=== PATIENT | female | born 1960 | race Caucasian/White ===

== ENCOUNTER 2017-10-16 19:11 | Emergency (ER) | payer OTHER ==
--- NOTE | 2017-10-16 19:42 | PDOC ---
History of Present Illness <Madai Ratliff - Last Filed: 10/16/17 22:26> - History of Present Illness Initial Comments: 10/16/17 19:43 56 yo F with h/o HTN, HLD, and NIDDM who presents with lightheadedness. Per pt. and pt. son and at bedside she experienced sudden onset of lightheadedness while upstairs in bedroom laying down. Denies vertiginous symptom, but reports nausea without vomiting. Denies LOC, confusion, convulsions , urinary incontinence, tongue biting, convulsions, slurred speech, facial droop. States that she had just finished eating dinner and went upstairs. notes that SBP was 140's and gave her Losartan 100 ( 1730) with improvement in BP. Family state that they had to carry pt. to car d/t weakness Patient denies periods of lightheadedness, but endorses fatigue, increased thirst, and increased urination over past week. Denies F/C, CP, palpitations, cough, SOB, abdominal pain, diarrhea, constipation, urinary complaints, sensory changes, VILLAGOMEZ, or vision change. Family reports new change in diet with 15 pound wt. loss over past 3 months. Denies h/o TIA/CVA, CAD/[place], stent placement, or abnormal stress testing. Recent LUE U/S with no evidence of DVT. <Jesse Treadwell - Last Filed: 10/16/17 22:35> - General Stated Complaint: DIZZINESS Time Seen by Provider: 10/16/17 19:41 Past History <Madai Ratliff - Last Filed: 10/16/17 22:26> - Past Medical History Anemia: No Asthma: No Cancer: No Cardiac Disorders: No CVA: No COPD: No CHF: No Dementia: No Diabetes: Yes GI Disorders: No Disorders: No HTN: No Hypercholesterolemia: Yes Liver Disease: No Seizures: No Thyroid Disease: No - Suicide/Smoking/Psychosocial Hx Smoking History: Never smoked Hx Alcohol Use: No Drug/Substance Use Hx: No Substance Use Type: None <Jesse Treadwell - Last Filed: 10/16/17 22:35> - Past Medical History Allergies/Adverse Reactions: Allergies Allergy/AdvReac Type Severity Reaction Status Date / Time No Known Allergies Allergy Verified 10/16/17 19:41 Home Medications: Ambulatory Orders Aspirin Coated [Ecotrin -] 81 mg PO DAILY 07/04/13 Atorvastatin Ca [Lipitor] 40 mg PO HS 07/04/13 Losartan Potassium [Cozaar] 50 mg PO DAILY 07/04/13 metFORMIN HCL [Glucophage -] 500 mg PO BID 07/04/13 Meclizine HCl [Antivert -] 25 mg PO QID #28 tablet 10/16/17 Review of Systems - Review of Systems Comments:: 10/16/17 19:42 GENERAL/CONSTITUTIONAL: + Weakness. No fever or chills. HEAD, EYES, EARS, NOSE AND THROAT: No change in vision. No ear pain or discharge. No sore throat.- CARDIOVASCULAR: No chest pain or shortness of breath RESPIRATORY: No cough, wheezing, or hemoptysis. GASTROINTESTINAL: No nausea, vomiting, diarrhea or constipation. GENITOURINARY: No dysuria, frequency, or change in urination. MUSCULOSKELETAL: No joint or muscle swelling or pain. No neck or back pain. SKIN: No rash NEUROLOGIC: + lightheadedness. No headache, vertigo, loss of consciousness, or change in strength/sensation. ENDOCRINE: No increased thirst. No abnormal weight change HEMATOLOGIC/LYMPHATIC: No anemia, easy bleeding, or history of blood clots. ALLERGIC/IMMUNOLOGIC: No hives or skin allergy. <Jesse Treadwell - Last Filed: 10/16/17 22:35> *Physical Exam - Vital Signs Last Vital Signs Temp Pulse Resp BP Pulse Ox 97.6 F 72 18 116/72 98 10/16/17 19:42 10/16/17 20:41 10/16/17 20:41 10/16/17 20:41 10/16/17 20:41 <Madai Ratliff - Last Filed: 10/16/17 22:26> - Physical Exam Comments: 10/16/17 19:42 GENERAL: Awake, alert, and fully oriented, in no acute distress HEAD: No signs of trauma, normocephalic, atraumatic EYES: PERRLA, EOMI, sclera anicteric, conjunctiva clear ENT: Dry mucous membranes Hearing grossly normal, nares patent, oropharynx clear without exudates. NECK: Normal ROM, supple, no lymphadenopathy, JVD, or masses LUNGS: No distress, speaks full sentences, clear to auscultation bilaterally HEART: Regular rate and rhythm, normal S1 and S2, no murmurs, rubs or gallops, peripheral pulses normal and equal bilaterally. ABDOMEN: Soft, nontender, normoactive bowel sounds. No guarding, no rebound. No masses EXTREMITIES : Normal inspection, Normal range of motion, no edema. No clubbing or cyanosis. NEUROLOGICAL: Cranial nerves II through XII grossly intact. Normal speech, no focal sensorimotor deficits, Absent dysmetria on FTN. Normal HTN and MONISHA. SKIN: Warm, Dry, normal turgor, no rashes or lesions noted <Justin Treadwellson - Last Filed: 10/16/17 22:35> ED Treatment Course - LABORATORY CBC & Chemistry Diagram: 10/16/17 20:23 10/16/17 20:23 - ADDITIONAL ORDERS Additional order review: Laboratory Results 10/16/17 10/16/17 10/16/17 21:52 20:23 20:23 PT with INR INR Sodium 137 Potassium 3.6 Chloride 104 Carbon Dioxide 24 Anion Gap 9 BUN 16 Creatinine 0.7 Creat Clearance w eGFR > 60 Random Glucose 211 H Calcium 8.2 L Total Bilirubin 0.2 AST 9 L ALT 12 Alkaline Phosphatase 87 Creatine Kinase 67 Troponin I < 0.02 Total Protein 6.8 Albumin 3.4 Urine Color Ltyellow Urine Appearance Clear Urine pH 5.0 Ur Specific [place] 1.015 Urine Protein 1+ H Urine Glucose (UA) Negative Urine Ketones Negative Urine Blood Negative Urine Nitrite Negative Urine Bilirubin Negative Urine Urobilinogen Negative Ur Leukocyte Esterase 2+ H Urine WBC (Auto) 3 Urine RBC (Auto) 4 Ur Epithelial Cells Rare Urine Bacteria Few Urine Mucus Few 10/16/17 20:23 PT with INR 10.20 INR 0.90 Sodium Potassium Chloride Carbon Dioxide Anion Gap BUN Creatinine Creat Clearance w eGFR Random Glucose Calcium Total Bilirubin AST ALT Alkaline Phosphatase Creatine Kinase Troponin I Total Protein Albumin Urine Color Urine Appearance Urine pH Ur Specific [place] Urine Protein Urine Glucose (UA) Urine Ketones Urine Blood Urine Nitrite Urine Bilirubin Urine Urobilinogen Ur Leukocyte Esterase Urine WBC (Auto) Urine RBC (Auto) Ur Epithelial Cells Urine Bacteria Urine Mucus 10/16/17 20:23 RBC 3.96 MCV 92.1 MCHC 35.0 RDW 12.5 MPV 8.3 Neutrophils % 65.2 Lymphocytes % 25.8 Monocytes % 6.3 Eosinophils % 1.9 Basophils % 0.8 - Medications Given in the ED: ED Medications Discontinued Medications Generic Name Dose Route Start Last Admin Trade Name [place] PRN Reason Stop Dose Admin Sodium Chloride 1,000 mls @ 1,000 mls/hr 10/16/17 19:59 10/16/17 20:23 Normal Saline - IV 10/16/17 20:58 1,000 mls/hr ASDIR STA Administration <Madai Ratliff - Last Filed: 10/16/17 22:26> - LABORATORY CBC & Chemistry Diagram: 10/16/17 20:23 10/16/17 20:23 <Jesse Treadwell - Last Filed: 10/16/17 22:35> Medical Decision Making - Medical Decision Making 10/16/17 22:26 EKG obtained 19:02. Normal sinus rhythm at 74 bpm. Normal EKG. <Madai Ratliff - Last Filed: 10/16/17 22:26> - Medical Decision Making 10/16/17 20:19 56 yo F with h/o HTN, HLD, and NIDDM who presents with sudden onset of lightheadedness while upstairs in bedroom laying down. Denies vertiginous symptom, LOC, convulsions, confusion, urinary incontinence, tongue biting, convulsions, slurred speech, facial droop. New onset nausea without vomiting. Endorses fatigue, increased thirst, and increased urination over past week. Lightheaded at rest and worse with movement. Denies F/C, CP, palpitations, cough , SOB, abdominal pain, diarrhea, constipation, urinary complaints, sensory changes, VILLAGOMEZ, or vision change. Denies h/o TIA/CVA, CAD/[place], stent placement, or abnormal stress testing. Recent LUE U/S with no evidence of DVT. HDS. Physical exam with dry mucous membranes. Symptoms consistent with presyncope vs. vertigo ( unlikely) NIHSS 0. Low suspicion of CVA/TIA. Absent ataxia or neuro findings on physical to suggest post. circulation CVA. Low suspicion of neurogenic syncope. Will assess for cardiogenic etiology- arrhythmias, heart dz. Will also assess for electrolyte/metabolic disturbance, underlying infection. Lightheadedness most likely 2/2 hypovolemia vs. hypoglycemia. ED Course: CBC, CMP, Cardiac, BS EKG, CXR, UA NS 1 L BS~196 10/16/17 21:35 CBC: Unremarkable Glu: 211 CXR: No acute cardiopulmonary findings on preilminay read. 10/16/17 21:49 CT HEAD: No acute hemmorhage or mass effect. Patient stable at bedside and reports improvement of lightheadedness. Stable for d/c with return precautions. 10/16/17 22:33 Meclizine 10/16/17 22:34 Meclzizine sent to pharm. <Jesse Treadwell - Last Filed: 10/16/17 22:35> *DC/Admit/Observation/Transfer - Attestations Scribe Attestion: 10/16/17 22:26 Documentation prepared by Madai Ratliff, acting as rn medical inpatient services for Jesse Treadwell MD. <Madai Ratliff - Last Filed: 10/16/17 22:26> - Discharge Dispostion Admit: No - Attestations Physician Attestion: 10/16/17 22:35 10/16/17 19:42 I attest to the information provided in this note. <Jesse Treadwell - Last Filed: 10/16/17 22:35> Diagnosis at time of Disposition: Pre-syncope - Discharge Dispostion Disposition: HOME Condition at time of disposition: Stable - Referrals Referrals: Alysa Jay MD [Primary Care Provider] - - Patient Instructions Printed Discharge Instructions: DI for Syncope in Adults (Fainting) Additional Instructions: Please return to the emergency department with any new or worsening symptoms or concerns. Please follow up with your primary care physician within 72 hours. Take meclizine as tolerated.
[2017-10-16 19:44] VITALS: TEMP 97.6; BMI 33.7
[2017-10-16] MEDS ORDERED: SODIUM CHLORIDE 1,000 ML IV STA (19:59)
[2017-10-16 20:27] LABS: BASO % 0.8 % (0-2.0); EOS % 1.9 % (0-4.5); HEMATOCRIT 36.5 % (32.4-45.2); HEMOGLOBIN 12.8 GM/dL (10.7-15.3); LYMPH % 25.8 % (8-40); MCH 32.3 pg (25.7-33.7); MEAN CELL VOLUME 92.1 fl (80-96); MEAN PLT VOLUME 8.3 fl (7.5-11.1); MONO % 6.3 % (3.8-10.2); NEUT % 65.2 % (42.8-82.8); PLATELET COUNT 266 K/MM3 (134-434); RBC 3.96 M/mm3 (3.60-5.2); RDW 12.5 % (11.6-15.6); WHITE BLOOD COUNT 8.4 K/mm3 (4.0-10.0)
--- NOTE | 2017-10-16 20:30 | PDOC ---
Attending Attestation - Resident Resident Name: Justin Treadwellson - ED Attending Attestation I have performed the following: I have examined & evaluated the patient, The case was reviewed & discussed with the resident, I agree w/resident's findings & plan, Exceptions are as noted - HPI HPI: 10/16/17 20:26 56 yo female brought in by family after she became lightheaded at home. The family stated she had to be carried to the car. No loss of consciousness. 10/16/17 20:58 - Physicial Exam PE: 10/16/17 20:59 56 yo female in no acute distress feeling lightheaded 10/16/17 22:13 wnwd 56 yo female who experienced lightheadedness head mcat eyes xavier eomi neck supple lungs cta b/l [facility]vs - Medical Decision Making 10/18/17 20:27 spoke with pt's PCP and she will see her in the office this week ct scan head no acute intracranial pathology
[2017-10-16 20:39] LABS: INR 0.9 (0.82-1.09); PROTHROMBIN TIME (PATIENT) 10.2 SEC (9.98-11.88)
[2017-10-16 20:42] VITALS: PULSE 72
[2017-10-16 20:49] LABS: ALBUMIN 3.4 g/dl (3.4-5.0); ALK PHOS 87 U/L (45-117); ANION GAP 9 (8-16); BILIRUBIN,TOTAL 0.2 mg/dL (0.2-1.0); BLOOD UREA NITROGEN 16 mg/dL (7-18); CALCIUM 8.2 mg/dL (8.5-10.1); CHLORIDE 104 mmol/L (98-107); CO2 24 mmol/L (21-32); CREATININE 0.7 mg/dL (0.55-1.02); GLUCOSE,RANDOM 211 mg/dL (74-106); POTASSIUM 3.6 mmol/L (3.5-5.1); SGOT/AST 9 U/L (15-37); SGPT/ALT 12 U/L (12-78); SODIUM 137 mmol/L (136-145); TOT PROT 6.8 g/dl (6.4-8.2)
[2017-10-16 22:05] LABS: URINE APPEARANCE CLEAR; URINE BILIRUBIN NEGATIVE (NEGATIVE); URINE BLOOD NEGATIVE (NEGATIVE); URINE COLOR LTYELLOW; URINE GLUCOSE (UA) NEGATIVE (NEGATIVE); URINE KETONE NEGATIVE (NEGATIVE); URINE LEUK ESTERASE 2+ (NEGATIVE); URINE NITRITE NEGATIVE (NEGATIVE); URINE PROTEIN 1+ (NEGATIVE); URINE UROBILINOGEN NEGATIVE mg/dL (0.2-1.0)
[2017-10-16 22:07] LABS: EPI CELLS RARE /HPF (FEW); URINE BACTERIA FEW /hpf (NONE SEEN); URINE MUCUS FEW
[2017-10-16] MEDS ORDERED: MECLIZINE HCL 25 MG TABLET (FP) PO ONE (22:34)
[2017-10-16] MEDS ORDERED: MECLIZINE HCL 25 MG TABLET (FP) ONE (22:52)
[2017-10-16 23:06] VITALS: BP 116/73
--- NOTE | 2017-10-17 16:04 | EKG ---
Test Reason : Blood Pressure : / mmHG Vent. Rate : 074 BPM Atrial Rate : 074 BPM P-R Int : 172 ms QRS Dur : 086 ms QT Int : 396 ms P-R-T Axes : 046 020 038 degrees QTc Int : 439 ms NORMAL SINUS RHYTHM NORMAL ECG WHEN COMPARED WITH ECG OF 27-JUL-2007 05:10, NO SIGNIFICANT CHANGE WAS FOUND Confirmed by EMBER CARUSO MD ([id number]) on 10/17/2017 4:04:27 PM Referred By: Confirmed By:EMBER CARUSO MD
== END 2017-10-16 23:09 | disposition home or self-care (01) ==
LOC: JER 19:11
PROC: 3E0337Z Introduction of Electrolytic and Water Balance Substance into Peripheral Vein, Percutaneous Approach (ICD-10-PCS; principal; 2017-10-16)
DX: R55 Syncope and collapse (principal); I10 Essential (primary) hypertension; E78.00 Pure hypercholesterolemia, unspecified; E11.9 Type 2 diabetes mellitus without complications; Z79.84 Long term (current) use of oral hypoglycemic drugs; Z79.82 Long term (current) use of aspirin
CPT/HCPCS: 36415; 70450-TC; 71045-TC-FY; 80053; 81003; 81015; 82550; 82962; 84484; 85025; 85610; 93005; 93010; 96360; 99284-25

== ENCOUNTER 2019-03-09 14:54 | Emergency (ER) | payer OTHER ==
--- NOTE | 2019-03-09 14:59 | PDOC ---
Rapid Medical Evaluation Medical Evaluation: Allergies Allergy/AdvReac Type Severity Reaction Status Date / Time No Known Allergies Allergy Verified 10/16/17 19:41 I have performed a brief in-person evaluation of this patient. The patient presents with a chief complaint of: possibly stepped on something today while cleaning kitchen today; unsure if it was glass; tried taking it out herself, but nothing came out; has hx of DM Pertinent physical exam findings: cut along plantar aspect of L foot; unable to feel FB I have ordered the following: L foot xray The patient will proceed to the ED for further evaluation. 03/09/19 14:56
[2019-03-09 15:00] VITALS: BP 140/71; PULSE 81; TEMP 97.7; BMI 35.2
--- NOTE | 2019-03-09 15:20 | PDOC ---
History of Present Illness - General Chief Complaint: Injury Stated Complaint: LT FOOT GLASS INJURY Time Seen by Provider: 03/09/19 14:56 History Source: Patient Exam Limitations: Clinical Condition - History of Present Illness Initial Comments: 03/09/19 15:45 Patient with history of diabetes present with complaint of puncture wound to bilateral of left foot while cleaning the house and felt she Steppe on the piece of glass but did not see a glass. Patient reports she attempted to take into for to remove glass but did not see anything. Reported increased pain when she stepped on bilateral left foot. Denies any other symptoms Occurred: reports: just prior to arrival Past History - Past Medical History Allergies/Adverse Reactions: Allergies Allergy/AdvReac Type Severity Reaction Status Date / Time No Known Allergies Allergy Verified 03/09/19 15:00 Home Medications: Ambulatory Orders Aspirin Coated [Ecotrin -] 81 mg PO DAILY 07/04/13 Atorvastatin Ca [Lipitor] 40 mg PO HS 07/04/13 Losartan Potassium [Cozaar] 50 mg PO DAILY 07/04/13 metFORMIN HCL [Glucophage -] 500 mg PO BID 07/04/13 Meclizine HCl [Antivert -] 25 mg PO QID #28 tablet 10/16/17 Sulfamethoxazole/Trimethoprim [Bactrim Ds -] 1 tab PO BID #14 tablet 03/09/19 Anemia: No Asthma: No Cancer: No Cardiac Disorders: No CVA: No COPD: No CHF: No Dementia: No Diabetes: Yes GI Disorders: No Disorders: No HTN: No Hypercholesterolemia: Yes Liver Disease: No Seizures: No Thyroid Disease: No - Suicide/Smoking/Psychosocial Hx Smoking History: Never smoked Have you smoked in the past 12 months: No Hx Alcohol Use: No Drug/Substance Use Hx: No Substance Use Type: None Review of Systems - Review of Systems Able to Perform ROS?: Yes Constitutional: No: Fever, Malaise, Weakness HEENTM: No: Symptoms Reported Respiratory: No: Symptoms reported Cardiac (ROS): No: Symptoms Reported ABD/GI: No: Symptoms Reported Musculoskeletal: Yes: Symptoms Reported, See HPI, Muscle Pain (left foot pain on plantar aspect) Integumentary: Yes: Symptoms Reported, Other (puncture wound to left foot) Neurological: No: Symptoms reported, Numbness, Paresthesia, Tingling All Other Systems: Reviewed and Negative *Physical Exam - Vital Signs Last Vital Signs Temp Pulse Resp BP Pulse Ox 97.7 F 81 16 140/71 99 03/09/19 14:57 03/09/19 14:57 03/09/19 14:57 03/09/19 14:57 03/09/19 14:57 - Physical Exam Comments: 03/09/19 15:18 GENERAL: Well developed, well nourished. Awake and alertin mild acute distress. PULMONARY: No evidence of respiratory distress. MUSCULOSKELETAL : mild tenderness over sole of left foot over distal 2-3 metatarsals. no swelling to foot. No bony deformities SKIN: Warm and dry. Normal capillary refill. No 1mm entry wound from cut made during previous attempt by patient to remove foreign object in foot over sole of distal left foot NEUROLOGICAL: Alert, awake, appropriate. No motor deficits in the lower extremities. Gait is normal without ataxia. PSYCHIATRIC: Cooperative. Good eye contact. Appropriate mood and affect. General Appearance: Yes: Nourished, Appropriately Dressed Medical Decision Making - Medical Decision Making 03/09/19 15:46 Patient with history of diabetes present with complaint of puncture wound to bilateral of left foot while cleaning the house and felt she Steppe on the piece of glass but did not see a glass. Patient reports she attempted to take into for to remove glass but did not see anything. Reported increased pain when she stepped on bilateral left foot. Denies any other symptoms Exam significant for small 1 mm cut to plantar aspect of sole left left foot over previously attempted effort to remove foreign material from left foot. No visible foreign objects seen in left foot. Multiple attempts done with needle to assess for any foreign object in left foot with no evidence of foreign objects in left foot. X-ray of left foot shows no clear foreign object in left foot Patient declined tetanus vaccine as she doesn't feel she stepped on a metal piece. Patient is stable for discharge on Bactrim antibiotics for infection prophylaxis given history of diabetes with podiatry follow-up *DC/Admit/Observation/Transfer Diagnosis at time of Disposition: Puncture wound of left foot Qualifiers: Encounter type: initial encounter Qualified Code(s): S91.332A - Puncture wound without foreign body, left foot, initial encounter - Discharge Dispostion Disposition: HOME Condition at time of disposition: Stable Decision to Admit order: No - Prescriptions Prescriptions: Sulfamethoxazole/Trimethoprim [Bactrim Ds -] 1 tab PO BID #14 tablet - Referrals Referrals: Rl Martell MD [Staff Physician] - - Patient Instructions Printed Discharge Instructions: DI for Puncture Wound Additional Instructions: Take prescribed prescription and finish it. Apply warm compress to left foot 2- 3 times a day as needed for pain. Take motrin as needed for pain. Follow-up with referred podiatry if no improvement in 3 days - Post Discharge Activity
== END 2019-03-09 15:50 | disposition home or self-care (01) ==
LOC: JERFT 14:54
DX: S91.332A Puncture wound without foreign body, left foot, initial encounter (principal); W22.8XXA Striking against or struck by other objects, initial encounter; Y93.E9 Activity, other interior property and clothing maintenance; Y92.030 Kitchen in apartment as the place of occurrence of the external cause; Y99.8 Other external cause status
CPT/HCPCS: 73630-TC-LT; 99281-25

== ENCOUNTER 2020-02-12 09:48 | Emergency (ER) | payer OTHER ==
[2020-02-12 10:06] VITALS: TEMP 98.6; BMI 35.3
[2020-02-12] MEDS ORDERED: IBUPROFEN 400 MG TABLET (FP) PO ONE (10:19)
[2020-02-12] MEDS ORDERED: ACETAMINOPHEN 325 MG TABLET (FP) PO ONE (10:19)
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
[2020-02-12 12:15] VITALS: BP 124/56; PULSE 68
== END 2020-02-12 12:25 | disposition home or self-care (01) ==
LOC: JER 09:48
DX: S16.1XXA Strain of muscle, fascia and tendon at neck level, initial encounter (principal); V89.2XXA Person injured in unspecified motor-vehicle accident, traffic, initial encounter
CPT/HCPCS: 72125-TC; 99284-25

== ENCOUNTER → 2021-05-20 | Day surgery (SDC) | payer OTHER | END | disposition home or self-care (01) | LOC: JRADIR 10:25 | PROC: 0G9G3ZX Drainage of Left Thyroid Gland Lobe, Percutaneous Approach, Diagnostic (ICD-10-PCS; principal; 2021-05-20) | DX: E04.1 Nontoxic single thyroid nodule (principal) | CPT/HCPCS: 10005; 76942; 88173; 88305-TC ==

== ENCOUNTER 2022-01-11 15:12 | Emergency (ER) | payer OTHER ==
[2022-01-11 15:17] VITALS: TEMP 98.6; BMI 35.0
[2022-01-11] MEDS ORDERED: KETOROLAC TROMETHAMINE 30 MG/1 ML VIAL IM ONE (17:41)
[2022-01-11] MEDS ORDERED: KETOROLAC TROMETHAMINE 30 MG/1 ML VIAL ONE (17:51)
[2022-01-11] MEDS ORDERED: IBUPROFEN 600 MG TABLET (FP) PO ONE ×2 (17:53→17:54)
[2022-01-11 19:12] VITALS: BP 124/74; PULSE 85
== END 2022-01-11 19:12 | disposition home or self-care (01) ==
LOC: JERFT 15:12
PROC: 3E0233Z Introduction of Anti-inflammatory into Muscle, Percutaneous Approach (ICD-10-PCS; principal; 2022-01-11)
DX: L03.116 Cellulitis of left lower limb (principal)
CPT/HCPCS: 73630-TC-LT; 99284-25

== ENCOUNTER → 2024-08-29 | Day surgery (SDC) | payer OTHER | END | disposition home or self-care (01) | LOC: JRADUS-SUR 08:13 | PROC: 0H9T3ZX Drainage of Right Breast, Percutaneous Approach, Diagnostic (ICD-10-PCS; principal; 2024-08-29) | DX: N60.11 Diffuse cystic mastopathy of right breast (principal) | CPT/HCPCS: 19083; 76942-TC; 77065-TC; 87899; 88305-TC; A4648 ==